=== PATIENT | male | born 1970 | race Hispanic/Latino ===

== ENCOUNTER 2017-01-25 06:37 | Emergency (ER) | payer OTHER ==
[~2017-01-25 06:37] MED LIST: BACLOFEN10 M1 PO; IBUPROFEN800 M1 PO; ULTRAM50 M1 PO
--- NOTE | 2017-01-25 07:20 | ED GENERAL ADULT ---
History of Present Illness General Chief Complaint: Eye Problems Stated Complaint: ?FB TO LT EYE Source: patient, friend Exam Limitations: language barrier Vital Signs & Intake/Output Vital Signs & Intake/Output Vital Signs Date Time Temp Pulse Resp B/P Pulse O2 O2 Flow FiO2 Ox Delivery Rate 01/25 0810 72 14 108/68 100 Room Air 01/25 0726 99 Room Air 01/25 0709 98.7 67 20 113/71 98 Room Air Allergies Coded Allergies: NO KNOWN ALLERGIES (02/19/12) Reconcile Medications No Known Home Medications Triage Note: PT TO ED C/O LEFT EYE IRRITATION. 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 Triage Nurses Notes Reviewed? yes Onset: Abrupt Duration: day(s): Timing: recent history HPI: 01/25/17 46-year-old man presents to the emergency department complaining of foreign body in the left eye. 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 The onset of the symptoms were abrupt, the duration has been for the past 24 hours, the severity is significant; as his symptoms required him to come to the emergency department for care. Past History Travel History Traveled to [place] past 21 day No Medical History Any Pertinent Medical History? see below for history History of MRSA: No History of VRE: No History of CDIFF: No Tetanus Vaccine: 03/12/14 Surgical History Surgical History: non-contributory Psychosocial History Who do you live with Family Services at Home None What is your primary language Yakut Tobacco Use: Never used ETOH Use: denies use Illicit Drug Use: denies illicit drug use Family History Family History, If Any: Relation not specified for: No family history of disorders Hx Contributory? No Review of Systems Review of Systems Constitutional: Reports: no symptoms. EENTM: Reports: eye pain. Denies: visual changes. Respiratory: Reports: no symptoms. Cardiovascular: Reports: no symptoms. GI: Reports: no symptoms. Genitourinary: Reports: no symptoms. Musculoskeletal: Reports: no symptoms. Skin: Reports: no symptoms. Neurological/Psychological: Reports: no symptoms. Hematologic/Endocrine: Reports: no symptoms. Immunologic/Allergic: Reports: no symptoms. Physical Exam Physical Exam General Appearance: well developed/nourished, alert, awake, anxious Head: atraumatic, normal appearance Eyes: Bilateral: normal appearance, PERRL, EOMI. Ears, Nose, Throat: normal pharynx, normal ENT inspection Neck: normal inspection Respiratory: no respiratory distress Cardiovascular: regular rate/rhythm Back: normal range of motion Extremities: normal inspection Neurologic/Psych: no motor/sensory deficits, awake, alert, oriented x 3 Skin: intact, normal color, warm/dry Comments: The left eyelid was everted. No foreign body was seen. The patient did have a corneal abrasion in the left upper aspect of the eye. A metallic foreign body was in the left upper corner. This was identified with slit lamp. His visual acuity was 20/40 in the left, 20/20 in the right non-corrected. The case was discussed with Dr. Velasquez. He saw the patient in his office and removed the foreign body. Core Measures ACS in differential dx? No CVA/TIA Diagnosis: No Severe Sepsis Present: No Septic Shock Present: No Progress Differential Diagnoses I considered the following diagnoses in my evaluation of the patient: [Foreign body, hyphema, corneal abrasion, endophthalmitis, corneal ulceration, corneal laceration] Plan of Care: Follow-up with Dr. Velasquez now. Initial ED EKG: none Departure Departure Disposition: HOME OR SELF CARE Condition: Stable Clinical Impression Primary Impression: Foreign body of left eye Referrals: JACOB ALANIZ MD (PCP/Family) Departure Forms: Customer Survey General Discharge Information Prescriptions: Current Visit Scripts No Known Home Medications Comments 01/25/17 Social doctor Delia see the patient in the office now he has a punctate metallic foreign body in the left upper aspect of his left eye. Visual acuity is 20/40 in the left eye and 20/20 in the right eye uncorrected Critical Care Note Critical Care Note Critical Care Time: non-applicable
[2017-01-25 08:10] VITALS: BP 108/68
== END 2017-01-25 08:13 ==
LOC: ERH 06:37
DX: T15.92XA Foreign body on external eye, part unspecified, left eye, initial encounter (principal)

== ENCOUNTER 2017-04-08 11:02 | Emergency (ER) | payer OTHER ==
[~2017-04-08] VITALS: Ht 167.6 cm; Wt 73.5 kg
--- NOTE | 2017-04-08 11:55 | ED UPPER/LOWER EXTREMITY COMPL ---
History of Present Illness General Chief Complaint: Lower Extremity Injury Stated Complaint: KNEE INJURY Source: patient, family Exam Limitations: language barrier Vital Signs & Intake/Output Vital Signs & Intake/Output Vital Signs Date Time Temp Pulse Resp B/P B/P Pulse O2 O2 Flow FiO2 Mean Ox Delivery Rate 04/08 1313 98.2 74 18 124/68 99 Room Air 04/08 1118 99.0 73 16 129/51 98 Room Air Room Air Allergies Coded Allergies: No Known Allergies (04/08/17) Reconcile Medications Meloxicam (Mobic) 15 MG TABLET 1 TAB PO DAILY PRN PAIN Triage Note: PT TO TRIAGE WITH PAIN AND SWELLING TO LEFT MEDIAL FERMIN ABOUT MID SHAFT. PT WAS HIT WITH A HAMMER. NO SWELLING OR REDDNESS. PT ABLE TO BARE WEIGHT Triage Nurses Notes Reviewed? yes Onset: Abrupt Duration: constant Timing: recent history Severity: severe Severity Numbers: 7 HPI: Patient is a 46-year-old male who presents to emergency room stating that 3 days ago patient while working accidentally struck his anterior aspect of his mid tibia of his left lower extremity with a hammer resulting in pain and swelling. Patient has not taken any medications for symptoms. Patient is complaining of persistent swelling and pain with ambulation. (EM STORY) Past History Travel History Traveled to [place] past 21 day No Medical History Any Pertinent Medical History? 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 No (EM STORY) Review of Systems Review of Systems Constitutional: Reports: no symptoms. EENTM: Reports: no symptoms. Respiratory: Reports: no symptoms. Cardiovascular: Reports: no symptoms. Gastrointestinal/Abdominal: Reports: no symptoms. Genitourinary: Reports: no symptoms. Musculoskeletal: Reports: see HPI, muscle pain. Skin: Reports: no symptoms. Neurological/Psychological: Reports: no symptoms. Hematologic/Endocrine: Reports: no symptoms. Immunological: Reports: no symptoms. All Other Systems: Reviewed and Negative (EM STORY) Physical Exam Physical Exam General Appearance: no apparent distress, alert, comfortable Neurologic/Tendon: normal sensation, normal motor functions, normal tendon functions, responds to pain, no evidence tendon injury, no pulse deficit Skin: intact, normal color Comments: Well-developed well-nourished no apparent distress. HEENT: Atraumatic, extraocular motion intact Neck: Supple, no lymphadenopathy Back: Nontender Respiratory: No respiratory distress Neuro: Alert and oriented x3 Psych: Mood affect normal, normal memory normal judgment. Diagram Legs Front/Back 1) Noted 2 cm tenderness and swelling skin intact mild inferior pitting edema No ecchymosis or step-off deformity (EM STORY) Progress Differential Diagnosis: arterial insufficiency, compartment syndrome, contusion, dislocation, DVT, fracture, gout, septic arthritis, sprain, tendon injury Plan of Care: Orders Procedure Date/time Status [id number], LEFT 04/08 1123 Active No osseous injury on x-rays for way patient was symptomatically tender. Patient will be treated for concerns of hematoma and contusion. Patrick wrap was applied to left lower extremity pre-and post-neurovascular was intact. Patient had normal steady gait on discharge (EM STORY) Diagnostic Imaging: Viewed by Me: Radiology Read. Radiology Impression: no fracture Comments: PATIENT: MARCO SAUER PRESENT AGE: 46 PATIENT ACCOUNT NO: [id number] : 69 LOCATION: [facility] ORDERING PHYSICIAN: EM MEDINA SERVICE DATE: 04/08/17 EXAM TYPE: RAD - [id number], LEFT EXAMINATION: XR TIBIA AND FIBULA, LEFT CLINICAL INFORMATION: Pain and swelling, evaluate for fracture. COMPARISON: None TECHNIQUE: AP and lateral views of the left tibia and fibula were obtained. FINDINGS: Bone mineral density is maintained without evidence of fracture or dislocation. No focal osseous lesions are seen. Joint space is maintained without productive or erosive changes. IMPRESSION: Normal appearing left tibia and fibula. 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 Begin using the Patrick wrap for swelling. Begin icing the area 20 minutes every 2 hours. Begin the prescription of meloxicam for pain and inflammation. Prescription is waiting at [facility]. If no better in one week follow-up with her primary care doctor Departure Forms: Customer Survey Employee Industrial Accident General Discharge Information Prescriptions: Current Visit Scripts Meloxicam (Mobic) 1 TAB PO DAILY PRN PAIN #14 TAB (EM STORY) PA/PET AMBASSADOR Co-Sign Statement Statement: ED Attending supervision documentation- [] I saw and evaluated the patient. I have also reviewed all the pertinent lab results and diagnostic results. I agree with the findings and the plan of care as documented in the PA's/PET AMBASSADOR's documentation. [X] I have reviewed the ED Record and agree with the PA's/PET AMBASSADOR's documentation. [] Additions or exceptions (if any) to the PAs/PET AMBASSADOR's note and plan are summarized below: [] (MALISSA GABRIEL,JUJU)
--- NOTE | 2017-04-08 12:49 | RADIOLOGY REPORT ---
EXAMINATION: XR TIBIA AND FIBULA, LEFT CLINICAL INFORMATION: Pain and swelling, evaluate for fracture. COMPARISON: None TECHNIQUE: AP and lateral views of the left tibia and fibula were obtained. FINDINGS: Bone mineral density is maintained without evidence of fracture or dislocation. No focal osseous lesions are seen. Joint space is maintained without productive or erosive changes. IMPRESSION: Normal appearing left tibia and fibula.
[2017-04-08] MEDS ORDERED: MOBIC15 M1 PO (13:06)
[2017-04-08 13:13] VITALS: BP 124/68
== END 2017-04-08 13:19 ==
LOC: ERH 11:02
DX: S80.12XA Contusion of left lower leg, initial encounter (principal); W27.8XXA Contact with other nonpowered hand tool, initial encounter; Y92.9 Unspecified place or not applicable; Y93.9 Activity, unspecified
CPT/HCPCS: 73590-LT